=== PATIENT | male | born 1965 | race Caucasian/White ===

== ENCOUNTER 2020-10-08 13:49 | Inpatient (IN) | payer OTHER ==
[~2020-10-08] VITALS: Ht 190.5 cm; Wt 120.3 kg
[~2020-10-08 13:49] MED LIST: CEPHALEXIN500 MG PO; NAPROXEN500 MG PO
[2020-10-08 14:50] LABS: BASOPHIL 0.3 % (0-2); EOSINOPHIL 0 % (0-5); HCT 46.6 % (42.0-52.0); HGB 16.1 g/dl (13.2-18.0); LYMPHOCYTE 3.4 % (15-48); MCH 30.5 pg (25.0-31.0); MCHC 34.5 g/dL (32.0-36.0); MCV 88.3 fL (78.0-100.0); MONOCYTE 5.6 % (0-12); MPV 12.7 fL (6.0-9.5); RBC 5.28 M/uL (4.70-6.00); RDW 13.9 % (11.5-14.0); WBC 8.8 K/uL (4.0-10.5)
[2020-10-08 14:53] LABS: ALBUMIN 2.9 g/dL (3.4-5.0); BILIRUBIN - TOTAL 0.8 mg/dL (0.2-1.0); BUN/CREAT RATIO (CALC) 17.9 RATIO; CREATININE 2.29 mg/dL (0.67-1.17); GLOBULIN (CALCULATION) 4.4 g/dL; POTASSIUM 3.6 mmol/L (3.5-5.1); TOTAL PROTEIN 7.3 g/dL (6.4-8.2)
[2020-10-08 15:07] LABS: PLT 59 K/uL (150-400)
[2020-10-08 15:12] LABS: BAND 24 % (0-10); BASOPHIL(M) 1 % (0-2); LYMPHOCYTE(M) 4 % (15-48); METAMYELOCYTE 1; MONOCYTE(M) 2 % (0-12); NEUTROPHILS(M) 68 % (41-80); TOTAL CELL COUNT 100
[2020-10-08 15:13] LABS: NRBC 0; PLATELET ESTIMATE DECREASED; PLATELET MORPHOLOGY GIANT
--- NOTE | 2020-10-08 17:51 | NUR ---
PATIENT RECEIVED FORM ER VIA STRETCHER. ASSESSMENT DONE, REPORT GIVEN TO LIZABETH
[2020-10-08 23:38] LABS: BILIRUBIN NEGATIVE (NEGATIVE); BLOOD 1+ Ery/uL (NEGATIVE); CLARITY CLEAR (CLEAR); COLOR YELLOW (YELLOW); GLUCOSE (U) TRACE mg/dL (NORMAL); LEUKOCYTES NEGATIVE Leu/uL (NEGATIVE); NITRITE NEGATIVE (NEGATIVE); PROTEIN TRACE (LOW) mg/dL (NEGATIVE); UROBILINOGEN 0.2 mg/dL (0.2-1.0); pH 5.5 (5.0-9.0)
[2020-10-08 23:46] LABS: BACTERIA TRACE; SQUAMOUS EPITHELIAL CELLS RARE; URINARY RBC RARE; URINARY WBC RARE
--- NOTE | 2020-10-09 05:14 | NUR ---
0510 Patient out of bed to use urinal, oxygen removed. Sat dropped to 79. Oxygen replaced and increased to 3L/NC. Sat returnes to 93%
[2020-10-09 06:27] LABS: BASOPHIL 0.3 % (0-2); EOSINOPHIL 0 % (0-5); HCT 43.1 % (42.0-52.0); HGB 14.4 g/dl (13.2-18.0); LYMPHOCYTE 9.2 % (15-48); MCHC 33.4 g/dL (32.0-36.0); MCV 89.8 fL (78.0-100.0); MONOCYTE 4.2 % (0-12); MPV 12.1 fL (6.0-9.5); NRBC 0; PLT 57 K/uL (150-400); RDW 14.2 % (11.5-14.0)
[2020-10-09 06:41] LABS: NEUTROPHIL 85.6 % (41-80)
[2020-10-09 06:50] LABS: BUN/CREAT RATIO (CALC) 22.8 RATIO; CREATININE 1.23 mg/dL (0.67-1.17); POTASSIUM 4.3 mmol/L (3.5-5.1)
--- NOTE | 2020-10-09 12:00 | NUR ---
PT IS CURRENTLY RECEIVING ELIQUIS FOR DVT. IF ELIQUIS IS PRESCRIBED FOR PT. THE MEDICATION IS ON THE PASSPORT FORMULARY AND WILL NOT HAVE A COPAY.
--- NOTE | 2020-10-09 22:20 | NUR ---
OXYGEN INCREASED FROM 2L TO 4L PER N/C ROLLER MACHINE OPERATOR NICHOLAS NOTIFIED AND WILL CONTINUE TO MONITOR O2 SATS.
[2020-10-10 06:39] LABS: ALBUMIN 2.5 g/dL (3.4-5.0); ALKALINE PHOSHATASE 69 U/L (46-116); ALT 52 U/L (16-63); AST 45 U/L (15-37); BILIRUBIN - TOTAL 0.3 mg/dL (0.2-1.0); BUN 22 mg/dL (7-18); BUN/CREAT RATIO (CALC) 23.7 RATIO; CHLORIDE 108 mmol/L (98-107); CO2 (BICARBONATE) 22 mmol/L (21-32); CREATININE 0.93 mg/dL (0.67-1.17); GLOBULIN (CALCULATION) 3.7 g/dL; GLUCOSE 134 mg/dL (74-106); POTASSIUM 5.2 mmol/L (3.5-5.1); TOTAL PROTEIN 6.2 g/dL (6.4-8.2)
[2020-10-10 06:40] LABS: C-REACTIVE PROTEIN < 0.20 mg/dL (<=0.90)
[2020-10-10 06:57] LABS: BASOPHIL 0.4 % (0-2); EOSINOPHIL 0 % (0-5); HCT 41.7 % (42.0-52.0); HGB 13.9 g/dl (13.2-18.0); LYMPHOCYTE 11.4 % (15-48); MCH 30.3 pg (25.0-31.0); MCHC 33.3 g/dL (32.0-36.0); MCV 90.8 fL (78.0-100.0); MONOCYTE 8.1 % (0-12); MPV 13.2 fL (6.0-9.5); NEUTROPHIL 79.5 % (41-80); NRBC 0; RBC 4.59 M/uL (4.70-6.00); RDW 14.5 % (11.5-14.0); WBC 8.4 K/uL (4.0-10.5)
[2020-10-10 07:21] LABS: PLT 57 K/uL (150-400)
--- NOTE | 2020-10-10 16:12 | NUR ---
MD NOTIFIED OF MAXIMINO EPISODES AT TIMES. STATES COMMON WITH COVID PATIENTS, WILL MONITOR
--- NOTE | 2020-10-10 19:14 | NUR ---
1000-PATIENT FOUND WITH IV REMOVED LAYING ON CHEST-NEW IV PLACED #22 TO LEFT WRIST. COBAN APPLIED TO KEEP IV IN PLACE 1100--ENTERED ROOM PATIENT WAS NAKED AT BEDSIDE, STUMBLING, DIRTIED BED ASSISTED TO CHAIR, CLEANED. STATES NEEDED URINAL TO VOID-VOIDED 700CC 1700--PT IN CHAIR, VOIDED IN BLANKET STATES "COULD NOT FIND URINAL" UPON WAKING SUDDENLY AND URINATED IN BLANKET. TELE THROWN ACROSS ROOM WITH BATTERIES LYING BEDSIDE IT. CB WITHIN REACH. PATIENT REORIENTED TO USE CB FOR ASSISTANCE.
[2020-10-11 05:46] LABS: BASOPHIL 0.3 % (0-2); EOSINOPHIL 0 % (0-5); HCT 41.7 % (42.0-52.0); HGB 14.1 g/dl (13.2-18.0); LYMPHOCYTE 10.9 % (15-48); MCH 30.2 pg (25.0-31.0); MCHC 33.8 g/dL (32.0-36.0); MCV 89.3 fL (78.0-100.0); MONOCYTE 5.5 % (0-12); MPV 12.8 fL (6.0-9.5); NEUTROPHIL 81.9 % (41-80); NRBC 0; RBC 4.67 M/uL (4.70-6.00); RDW 14.5 % (11.5-14.0); WBC 8.7 K/uL (4.0-10.5)
[2020-10-11 05:58] LABS: ALBUMIN 2.4 g/dL (3.4-5.0); BILIRUBIN - TOTAL 0.4 mg/dL (0.2-1.0); BUN/CREAT RATIO (CALC) 25.3 RATIO; CREATININE 0.91 mg/dL (0.67-1.17); GLOBULIN (CALCULATION) 4.1 g/dL; POTASSIUM 4.4 mmol/L (3.5-5.1); TOTAL PROTEIN 6.5 g/dL (6.4-8.2)
[2020-10-11 06:02] LABS: PLT 97 K/uL (150-400)
--- NOTE | 2020-10-12 02:54 | NUR ---
PT TELE SINUS MAXIMINO WHEN SLEEPING. CREDIT INTERVIEWER BOBBY MCCORMACK NOTIFIED. CARDIAC CONSULT PLACED.
[2020-10-12] MEDS ORDERED: ELIQUIS5 MG PO (12:16)
[2020-10-12] MEDS ORDERED: MEDROL 4MG DOSEP4 MG PO (12:16)
[2020-10-13 05:43] LABS: BASOPHIL 0.8 % (0-2); EOSINOPHIL 0.2 % (0-5); HCT 46.1 % (42.0-52.0); HGB 15.9 g/dl (13.2-18.0); LYMPHOCYTE 18.6 % (15-48); MCH 30.2 pg (25.0-31.0); MCHC 34.5 g/dL (32.0-36.0); MCV 87.6 fL (78.0-100.0); MONOCYTE 8.4 % (0-12); NEUTROPHIL 67.8 % (41-80); NRBC 0; PLT 185 K/uL (150-400); RBC 5.26 M/uL (4.70-6.00); RDW 14.3 % (11.5-14.0); WBC 11.1 K/uL (4.0-10.5)
[2020-10-13 06:15] LABS: CREATININE 0.89 mg/dL (0.67-1.17); POTASSIUM 4.5 mmol/L (3.5-5.1)
== END 2020-10-13 14:35 | disposition home or self-care (01) | DRG 871 ==
LOC: FER 13:49 → FMS 15:55
PROVIDERS: Allergy & Immunology Allergy; Nurse Practitioner Family; ADMIT Internal Medicine
PROC: 8E0ZXY6 Isolation (ICD-10-PCS; 2020-10-09)
PROC: XW033E5 Introduction of Remdesivir Anti-infective into Peripheral Vein, Percutaneous Approach, New Technology Group 5 (ICD-10-PCS; principal; 2020-10-10)
DX: A41.9 Sepsis, unspecified organism (principal); U07.1 COVID-19; J12.82 Pneumonia due to coronavirus disease 2019; J15.20 Pneumonia due to staphylococcus, unspecified; J96.91 Respiratory failure, unspecified with hypoxia; N17.9 Acute kidney failure, unspecified; J98.11 Atelectasis; I82.401 Acute embolism and thrombosis of unspecified deep veins of right lower extremity; A08.39 Other viral enteritis; R65.20 Severe sepsis without septic shock; E86.0 Dehydration; Z96.642 Presence of left artificial hip joint; J45.909 Unspecified asthma, uncomplicated; R00.1 Bradycardia, unspecified; Z88.1 Allergy status to other antibiotic agents; Z98.890 Other specified postprocedural states
CPT/HCPCS: 36415; 36600; 71045; 71275; 80048; 80053; 80202; 81001; 82728; 82803; 83605; 84145; 84484; 85025; 85379; 86140; 87040; 93005; 93971; 94640; C9399; J0456; J0696; J1100; J1650; J3370; J7030; J7040; J7050; J8540; Q9967; U0002

== ENCOUNTER 2021-03-08 11:57 | Emergency (ER) | payer OTHER ==
[~2021-03-08 11:57] MED LIST changes: +ELIQUIS5 MG PO; +MEDROL 4MG DOSEP4 MG PO
[2021-03-08 12:37] LABS: BASOPHIL 0.3 % (0-2); EOSINOPHIL 0.3 % (0-5); HCT 46.5 % (42.0-52.0); HGB 15.6 g/dl (13.2-18.0); LYMPHOCYTE 13.1 % (15-48); MCH 29.5 pg (25.0-31.0); MCHC 33.5 g/dL (32.0-36.0); MCV 88.1 fL (78.0-100.0); MONOCYTE 8.1 % (0-12); MPV 12.8 fL (6.0-9.5); NRBC 0; RBC 5.28 M/uL (4.70-6.00); WBC 8.8 K/uL (4.0-10.5)
[2021-03-08 12:54] LABS: BUN/CREAT RATIO (CALC) 23.6 RATIO; CREATININE 1.48 mg/dL (0.67-1.17); POTASSIUM 3.6 mmol/L (3.5-5.1)
[2021-03-08 13:06] LABS: PLT 40 K/uL (150-400)
[2021-03-08 13:16] LABS: LACTIC ACID 2.3 mmol/L (0.4-1.9)
[2021-03-08 14:14] LABS: BILIRUBIN NEGATIVE (NEGATIVE); BLOOD 3+ Ery/uL (NEGATIVE); CLARITY CLEAR (CLEAR); COLOR YELLOW (YELLOW); GLUCOSE (U) NORMAL (NORMAL); LEUKOCYTES TRACE Leu/uL (NEGATIVE); NITRITE NEGATIVE (NEGATIVE); PROTEIN TRACE (LOW) mg/dL (NEGATIVE); SPECIFIC GRAVITY 1.015 (1.001-1.030); UROBILINOGEN 0.2 mg/dL (0.2-1.0)
[2021-03-08 14:37] LABS: BACTERIA TRACE
== END 2021-03-08 18:46 | disposition other institution (70) ==
LOC: FER 11:57
PROVIDERS: Nurse Practitioner Family
DX: A41.9 Sepsis, unspecified organism (principal); L03.115 Cellulitis of right lower limb; Z88.0 Allergy status to penicillin; Z20.822 Contact with and (suspected) exposure to COVID-19
CPT/HCPCS: 36415; 71045; 73700; 80048; 81001; 83605; 85025; 85379; 87040; 87088; 93971; J2270; J2405; J3370; J3490; J7030; J7050; U0002

== ENCOUNTER 2021-11-09 16:11 | Emergency (ER) | payer OTHER ==
[~2021-11-09 16:11] MED LIST changes: +CLEOCIN HCL150 MG PO
[2021-11-09 20:09] LABS: BASOPHIL 0.6 % (0-2); EOSINOPHIL 3.6 % (0-5); HGB 14.8 g/dl (13.2-18.0); LYMPHOCYTE 19.3 % (15-48); MCH 29.4 pg (25.0-31.0); MCHC 32.2 g/dL (32.0-36.0); MCV 91.5 fL (78.0-100.0); MONOCYTE 8.1 % (0-12); MPV 10.8 fL (6.0-9.5); NEUTROPHIL 67.6 % (41-80); NRBC 0; PLT 219 K/uL (150-400); RBC 5.03 M/uL (4.70-6.00); RDW 14.1 % (11.5-14.0)
[2021-11-09 20:29] LABS: BILIRUBIN - TOTAL 0.3 mg/dL (0.2-1.0); GLOBULIN (CALCULATION) 4.1 g/dL; POTASSIUM 4.6 mmol/L (3.5-5.1); TOTAL PROTEIN 8.1 g/dL (6.4-8.2)
[2021-11-09] MEDS ORDERED: BACTRIM DS TAB1 EACH PO (22:31)
[2021-11-09] MEDS ORDERED: VIBRAMYCIN100 MG PO (22:31)
== END 2021-11-09 22:42 | disposition home or self-care (01) ==
LOC: FER 16:11
PROVIDERS: Physician Assistant
DX: M86.8X7 Other osteomyelitis, ankle and foot (principal); Z88.0 Allergy status to penicillin; Z28.310 Unvaccinated for COVID-19
CPT/HCPCS: 36415; 73630; 80053; 85025; 86140

== ENCOUNTER 2021-12-06 12:17 | Emergency (ER) | payer OTHER ==
[~2021-12-06 12:17] MED LIST changes: +BACTRIM DS TAB1 EACH PO; +VIBRAMYCIN100 MG PO
[2021-12-06 13:08] LABS: BUN/CREAT RATIO (CALC) 23.8 RATIO; CREATININE 1.05 mg/dL (0.67-1.17); POTASSIUM 4.4 mmol/L (3.5-5.1)
[2021-12-06 13:23] LABS: BASOPHIL 0.6 % (0-2); EOSINOPHIL 1.5 % (0-5); HCT 50.4 % (42.0-52.0); HGB 16.2 g/dl (13.2-18.0); LYMPHOCYTE 7.3 % (15-48); MCH 29.2 pg (25.0-31.0); MCHC 32.1 g/dL (32.0-36.0); MCV 90.8 fL (78.0-100.0); MONOCYTE 6.7 % (0-12); MPV 11.7 fL (6.0-9.5); NEUTROPHIL 83.5 % (41-80); NRBC 0; PLT 147 K/uL (150-400); RBC 5.55 M/uL (4.70-6.00); RDW 14.5 % (11.5-14.0); WBC 8.9 K/uL (4.0-10.5)
== END 2021-12-06 13:52 | disposition home or self-care (01) ==
LOC: FER 12:17
PROVIDERS: Emergency Medicine
DX: U07.1 COVID-19 (principal); J45.909 Unspecified asthma, uncomplicated; Z28.310 Unvaccinated for COVID-19; Z88.0 Allergy status to penicillin
CPT/HCPCS: 36415; 71045; 80048; 85025